=== PATIENT | female | born 2000 | race Caucasian/White ===

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

== ENCOUNTER 2021-05-07 18:15 | Emergency (ER) | payer MEDICAID, OTHER ==
[2021-05-07 19:38] LABS: CORONAVIRUS COVID-19 NAA POSITIVE (NEGATIVE)
== END 2021-05-07 20:22 | disposition home or self-care (01) ==
LOC: JP.ED 18:15
DX: U07.1 COVID-19 (principal); R11.2 Nausea with vomiting, unspecified; Z88.0 Allergy status to penicillin
CPT/HCPCS: 0241U; 99284

== ENCOUNTER 2021-08-03 21:58 | Emergency (ER) | payer MEDICAID ==
[2021-08-03] MEDS ORDERED: Ondansetron 4 MG Tab.DIS PO ONE (23:30)
[2021-08-03] MEDS ORDERED: hydrOXYzine HCl 25 MG Tab PO ONE (23:30)
== END 2021-08-04 00:45 | disposition home or self-care (01) ==
LOC: JP.ED 21:58
DX: S30.860A Insect bite (nonvenomous) of lower back and pelvis, initial encounter (principal); R55 Syncope and collapse; Z88.0 Allergy status to penicillin; W57.XXXA Bitten or stung by nonvenomous insect and other nonvenomous arthropods, initial encounter
CPT/HCPCS: 36415; 80048; 85025; 86140; 99281; 99284; A9270-GY; Q0162

== ENCOUNTER 2022-02-19 21:57 | Emergency (ER) | payer MEDICAID | END 2022-02-19 23:06 | disposition home or self-care (01) | LOC: JP.ED 21:57 | DX: K64.5 Perianal venous thrombosis (principal); Z87.891 Personal history of nicotine dependence; Z88.0 Allergy status to penicillin | CPT/HCPCS: 99282 ==

== ENCOUNTER 2022-03-12 09:29 | Emergency (ER) | payer MEDICAID | END 2022-03-12 10:55 | disposition home or self-care (01) | LOC: JP.ED 09:29 | DX: O99.512 Diseases of the respiratory system complicating pregnancy, second trimester (principal); J06.9 Acute upper respiratory infection, unspecified; Z88.0 Allergy status to penicillin; Z20.822 Contact with and (suspected) exposure to COVID-19; Z3A.14 14 weeks gestation of pregnancy | CPT/HCPCS: 99283; U0002 ==

== ENCOUNTER 2022-08-28 18:33 | Emergency (ER) | payer MEDICAID | END 2022-08-28 21:51 | disposition home or self-care (01) | LOC: JP.ED 18:33 | DX: O99.513 Diseases of the respiratory system complicating pregnancy, third trimester (principal); J06.9 Acute upper respiratory infection, unspecified; Z88.0 Allergy status to penicillin; Z86.16 Personal history of COVID-19; Z3A.39 39 weeks gestation of pregnancy | CPT/HCPCS: 87081; 87880-QW; 99283; U0002 ==